=== PATIENT | male | born 2005 | race African-American/Black ===

== ENCOUNTER 2024-05-09 02:50 | Emergency (ER) | payer OTHER, SELFPAY ==
[2024-05-09 03:21] LABS: #Basophils 0.1 thou/uL (0.0-0.2); #Monocytes 0.4 thou/uL (0.11-0.59); #Neutrophils 2.8 thou/uL (1.40-6.50); %Basophils 2.3 % (0.0-1.0); %Eosinophils 0.3 % (0.0-10.0); %Lymphocytes 36.5 % (28.0-48.0); %Monocytes 8.1 % (0.0-4.0); %Neutrophils 52.8 % (31.0-61.0); Hematocrit 42.2 % (42.0-52.0); Hemoglobin 12.7 g/dL (14.0-18.0); Mean Corpuscular HGB CONC 30.2 g/dL (32.0-36.0); Mean Corpuscular Hemoglobin 25.6 pg (25.0-35.0); Mean Corpuscular Volume 84.7 fl (78.0-98.0); Mean Platelet Volume 6.7 fL (7.4-10.4); Platelet Count 232 10x3/uL (130-400); RBC Distribution Width 12.8 % (11.5-14.5); Red Blood Cell (RBC) Count 4.98 mill/uL (4.00-5.20); White Blood Cell (WBC) Count 5.4 10x3/uL (4.8-10.8)
[2024-05-09 03:26] LABS: Prothrombin Time 13.1 sec (12.0-14.7)
[2024-05-09 03:27] LABS: PTT 27.4 sec (22.9-36.1)
[2024-05-09] MEDS ORDERED: Ketorolac Tromethamine 30 MG (1 mL) VIAL ONE (03:30)
[2024-05-09 03:37] LABS: Troponin I 0.016 ng/mL (< 0.028)
[2024-05-09 03:47] LABS: ALT (SGPT) 24 U/L (8-55); AST (SGOT) 23 U/L (5-34); Albumin 4.4 g/dL (3.5-5.0); Alkaline Phosphatase 49 U/L (50-130); Anion Gap 16 mmol/L (10-20); BUN (Urea Nitrogen) 11 mg/dL (8.9-20.6); Bilirubin, Total 0.3 mg/dL (0.2-1.2); Calc. Creatinine Clearance 0 mL/min (70-130); Calcium 9.1 mg/dL (7.8-10.44); Carbon Dioxide 23 mmol/L (22-29); Chloride 107 mmol/L (98-107); Estimated GFR 111; Glucose 116 mg/dL (70-105); Potassium 3.7 mmol/L (3.5-5.1); Protein, Total 7.4 g/dL (6.0-8.3); Sodium 142 mmol/L (136-145)
[2024-05-09] MEDS ORDERED: Iopamidol 370 76% 100 ML VIAL ONE (09:00)
== END 2024-05-09 05:35 | disposition home or self-care (01) ==
LOC: MADERS 02:50
DX: S00.81XA Abrasion of other part of head, initial encounter (principal); S46.811A Strain of other muscles, fascia and tendons at shoulder and upper arm level, right arm, initial encounter; V89.2XXA Person injured in unspecified motor-vehicle accident, traffic, initial encounter
CPT/HCPCS: 70450; 70486; 71260; 72125; 74177; 80053; 84484; 85025; 85610; 85730; 86850; 86900; 86901; 96374; G0390; J1885; Q9967